=== PATIENT | male | born 1980 | race Caucasian/White ===

== ENCOUNTER 2018-09-15 09:34 | Emergency (ER) | payer OTHER ==
[~2018-09-15] VITALS: Ht 177.8 cm; Wt 89.4 kg
[~2018-09-15 09:34] MED LIST: DEXAMETHASONE 4 MG TABLET PO ONE
[2018-09-15 09:39] VITALS: BP 125/79
--- NOTE | 2018-09-15 10:04 | PHYS DOC ---
Past History Past Medical History: No Pertinent History Past Surgical History: No Surgical History Alcohol Use: None Drug Use: None Adult General Chief Complaint Chief Complaint: SORE THROAT HPI HPI Patient is a 38-year-old male presents to the ED with a chief complaint of fever and sore throat. Patient states the symptoms started yesterday. Patient states that there is no sick contacts at home but he does have kids to school. Patient states that the fever was as high as 103 is Fahrenheit yesterday. Patient took medication which relieved the fever. Patient states that he has no other medical history. Patient denies smoking, drug use, alcohol use. Review of Systems Review of Systems Constitutional: Complains of fever yesterday HENT: Denies nasal congestion, sinus tenderness. Complains of sore throat Respiratory: Denies cough or shortness of breath Cardiovascular: Denies CP GI: Denies abdominal pain, nausea, vomiting or diarrhea : Denies dysuria or hematuria Musculoskeletal: Denies back pain or joint pain Skin: Denies rash or skin lesions Neurologic: Denies headache, focal weakness or sensory changes Complete systems were reviewed and found to be within normal limits, except as documented in this note. Physical Exam Physical Exam Constitutional: Well developed, well nourished, no acute distress, non-toxic appearance. HENT: Normocephalic, atraumatic, normocaphalic. Positive for pharyngeal erythema Eyes: PERRL, EOMI Neck: Normal range of motion, no tenderness, supple Cardiovascular:Heart rate regular rhythm, no murmur Resp: Bilateral breath sounds clear to auscultation Skin: Warm, dry, no erythema, no rash. Back: No tenderness, no CVA tenderness. Extremities: No tenderness, ROM intact, no edema. Neurologic: Alert and oriented X 3, normal motor function, normal sensory function, no focal deficits noted. Psychologic: Affect normal, judgement normal, mood normal. Current Patient Data Vital Signs Vital Signs Date Time Temp Pulse Resp B/P (MAP) Pulse Ox O2 Delivery O2 Flow Rate FiO2 09/15/18 09:39 98.4 88 20 99 Room Air EKG EKG [] Radiology/Procedures Radiology/Procedures [] Course & Med Decision Making Course & Med Decision Making Pertinent Labs reviewed. (See chart for details) Influenza A and B are negative. Strep is negative. Due to patient's presenting symptoms and complaints, I will treat patient with oral antibiotics. Patient has been given a dose of Decadron orally in the ED. Discussed results on plan of care patient. Patient followed this up in 1-2 days. Appropriate discharge instructions given to patient to return to the ED or to seek immediate medical evaluation. Dragon Disclaimer Dragon Disclaimer This electronic medical record was generated, in whole or in part, using a voice recognition dictation system. Departure Departure: Impression: Primary Impression: Pharyngitis Disposition: HOME, SELF-CARE Condition: STABLE Referrals: TESSA KELLY (PCP) Patient Instructions: Viral Pharyngitis Additional Instructions: Follow-up with PCP 1 to 2 days. Please return to the ED if symptoms worsen or if any concerns. Scripts Amoxicillin (AMOXICILLIN) 500 Mg Tablet 1 TAB PO TID for pharyngitis for 10 Days, #30 TAB Prov: HUGH TERRAZAS DO 09/15/18 Problem Qualifiers Primary Impression: Pharyngitis Pharyngitis/tonsillitis etiology: unspecified etiology Qualified Codes: J02.9 - Acute pharyngitis, unspecified HUGH TERRAZAS DO Sep 15, 2018 10:04
[2018-09-15 10:30] LABS: INFLUENZA A PATIENT NEGATIVE (NEGATIVE); INFLUENZA B PATIENT NEGATIVE (NEGATIVE)
[2018-09-15] MEDS ORDERED: DEXAMETHASONE SOD PHOS 10 MG/ML VIAL ONE (10:40)
[2018-09-15] MEDS ORDERED: AMOX500T PO (10:56)
== END 2018-09-15 11:02 | disposition home or self-care (01) ==
LOC: ER 09:34
DX: J02.9 Acute pharyngitis, unspecified (principal)
CPT/HCPCS: 87070; 87804; 87880; 99283; J8540